=== PATIENT | male | born 1950 | race Hispanic/Latino ===

== ENCOUNTER 2020-01-27 05:47 | Outpatient (CLI) | payer MEDICARE, OTHER ==
[2020-01-27 11:13] LABS: #Basophils 0.1 thou/uL (0.0-0.2); #Eosinphils 1.3 thou/uL (0.0-0.7); #Lymphocytes 0.9 thou/uL (1.20-3.40); #Monocytes 0.9 thou/uL (0.11-0.59); #Neutrophils 6.4 thou/uL (1.40-6.50); %Basophils 0.7 % (0.0-1.0); %Eosinophils 13.3 % (0.0-10.0); %Lymphocytes 9.7 % (21.0-51.0); %Monocytes 9.3 % (0.0-10.0); Hemoglobin 14.7 g/dL (14.0-18.0); Mean Corpuscular HGB CONC 30.5 g/dL (32.0-36.0); Mean Corpuscular Hemoglobin 30.3 pg (27.0-31.0); Mean Corpuscular Volume 99.4 fL (78.0-98.0); Mean Platelet Volume 8.1 fL (7.4-10.4); Platelet Count 153 thou/uL (130-400); RBC Distribution Width 16.2 % (11.5-14.5); Red Blood Cell (RBC) Count 4.84 mill/uL (4.70-6.10); White Blood Cell (WBC) Count 9.6 thou/uL (4.8-10.8)
[2020-01-27 11:28] LABS: Anion Gap 23 mmol/L (10-20); BUN (Urea Nitrogen) 40 mg/dL (8.4-25.7); Calc. Creatinine Clearance 0 mL/min (70-130); Calcium 10.5 mg/dL (7.8-10.44); Carbon Dioxide 25 mmol/L (23-31); Chloride 96 mmol/L (98-107); Estimated GFR-MDRD 6; Glucose 77 mg/dL (83-110); Potassium 5.4 mmol/L (3.5-5.1); Sodium 139 mmol/L (136-145)
--- NOTE | 2020-01-27 17:36 | EKG ---
Test Reason : Blood Pressure : / mmHG Vent. Rate : 088 BPM Atrial Rate : 088 BPM P-R Int : 182 ms QRS Dur : 094 ms QT Int : 382 ms P-R-T Axes : 037 054 007 degrees QTc Int : 462 ms Normal sinus rhythm Normal ECG No previous ECGs available Confirmed by RAVI NG, DR. Truong ([id number]) on 01/27/2020 5:35:37 PM Referred By: MIGUEL Confirmed By:DR. Alexi RODRIGUES MD
[2020-01-31 17:36] LABS: SARS-CoV-2 MS2 Positive; SARS-CoV-2 N Gene Negative; SARS-CoV-2 S Gene Negative; SARS-CoV-2 orf1ab Negative
== END 2020-01-27 05:48 | disposition home or self-care (01) ==
LOC: LABBT 05:47
PROVIDERS: ATTEND Specialist
DX: Z01.818 Encounter for other preprocedural examination (principal); Z11.59 Encounter for screening for other viral diseases; N18.6 End stage renal disease
CPT/HCPCS: 80048; 85025; 93005; U0003; 87635; 93010

== ENCOUNTER 2020-02-01 08:33 | Day surgery (SDC) | payer MEDICARE ==
[2020-01-27 08:38] VITALS: BMI 28.3
[2020-02-01] MEDS ORDERED: Protamine Sulfate 50 MG/5 ML VIAL ONE (09:08)
[2020-02-01] MEDS ORDERED: Heparin 5,000 UNITS/ML VIAL ONE (09:08)
[2020-02-01] MEDS ORDERED: Bupivacaine 0.25% HCL 30 ML VIAL ONE (09:08)
[2020-02-01] MEDS ORDERED: Lidocaine 1% w/Epinephrine 1:100K 20 ML VIAL ONE (09:08)
[2020-02-01] MEDS ORDERED: Fentanyl 100 MCG/2 ML VIAL ONE ×2 (09:10→09:18)
[2020-02-01] MEDS ORDERED: Lidocaine 1% PF 5 ML VIAL ONE (09:11)
[2020-02-01] MEDS ORDERED: Midazolam HCl 2 mg/2 ml Vial ONE (09:18)
[2020-02-01] MEDS ORDERED: Propofol 500 MG/50 ML VIAL ONE (09:26)
[2020-02-01] MEDS ORDERED: Ondansetron PF 4 MG/2 ML Vial ONE ×2 (09:26→11:23)
[2020-02-01] MEDS ORDERED: PHENYLEPHRINE-NS 100 MCG/ML 10 ML SYRINGE ONE (11:23)
[2020-02-01] MEDS ORDERED: Bupivacaine HCl 0.5%/Epinephrine 1:200,000/PF 30 ml Vial ONE (11:23)
[2020-02-01] MEDS ORDERED: PROPOFOL 200 MG/20 ML VIAL ONE (11:23)
--- NOTE | 2020-02-01 19:23 | OP ---
DATE OF PROCEDURE: 02/01/2020 PREOPERATIVE DIAGNOSES: End-stage renal disease, dysfunctional Brigido fistula, left forearm with aneurysms. POSTOPERATIVE DIAGNOSES: End-stage renal disease, dysfunctional Brigido fistula, left forearm with aneurysms. PROCEDURE PERFORMED: Repair of aneurysms, left forearm Brigido fistula. ANESTHESIA: Regional, TIVA. ESTIMATED BLOOD LOSS: 100 mL. BLOOD TRANSFUSION: None. DESCRIPTION OF PROCEDURE: The patient was taken to the operating room, where under regional anesthesia, left upper extremity was prepared with ChloraPrep and draped in routine fashion. The patient had two sequential aneurysmal dilatations, Brigido fistula just beyond the arterial inflow of the wrist. An elliptical incision was made to excise redundant skin, carried down to skin and subcutaneous tissue, dissected free from the aneurysm circumferentially, proximally, distally. The patient was given 6000 units of heparin intravenously. After adequate circulation time, arterial inflow clamped with vascular clamps. Outflow clamped with vascular clamps and redundant skin excised along with the ellipse of the aneurysm wall. IV fistula was then repaired using continuous plicating suture of 4-0 Prolene. Completing that closure and releasing the clamps, given the patient 25 mg of protamine intravenously by Anesthesia. Hemostasis obtained with cautery. A good repair of the aneurysm noted. Good flow noted on palpation. Subcutaneous tissue was approximated with 3-0 Monocryl, skin with subdermal 4-0 Monocryl, and [place] glue applied. Gomez wrap applied, which can be removed tomorrow. Job ID: [id number]
== END 2020-02-01 12:40 | disposition home or self-care (01) ==
LOC: SDC 08:33
PROVIDERS: ATTEND Specialist
PROC: 05WY07Z Revision of Autologous Tissue Substitute in Upper Vein, Open Approach (ICD-10-PCS; principal; 2020-02-01)
DX: T82.898A Other specified complication of vascular prosthetic devices, implants and grafts, initial encounter (principal); I12.0 Hypertensive chronic kidney disease with stage 5 chronic kidney disease or end stage renal disease; N18.6 End stage renal disease; E78.5 Hyperlipidemia, unspecified; I25.10 Atherosclerotic heart disease of native coronary artery without angina pectoris; Z87.891 Personal history of nicotine dependence; Z79.82 Long term (current) use of aspirin; Z79.899 Other long term (current) drug therapy; Z95.0 Presence of cardiac pacemaker; Z95.1 Presence of aortocoronary bypass graft; Z95.2 Presence of prosthetic heart valve; Z99.2 Dependence on renal dialysis
CPT/HCPCS: J0670; J0690; J1644; J2001; J2250; J2405; J2704; J2720; J3010; S0020